=== PATIENT | male | born 1945 | race Two or more races ===

== ENCOUNTER 2023-11-27 03:39 | Observation (INO) | payer OTHER ==
[~2023-11-27] VITALS: Ht 177.8 cm; Wt 108.3 kg
[2023-11-27 05:00] VITALS: BP 116/58; PULSE 105; RESP 20; TEMP 97.9; O2SAT 99
[2023-11-27] MEDS ORDERED: HYDR-4902 PO (05:58)
[2023-11-27 05:59] VITALS: BP 116/58; PULSE 101; RESP 19; TEMP 97.5; O2SAT 95
[2023-11-27] MEDS ORDERED: NITROGLYCERIN 0.4 MG SL TAB SL PRN (06:15)
[2023-11-27] MEDS ORDERED: DEXTROSE (50%) 50ML SYRG IV PRN (06:15)
[2023-11-27] MEDS: InsuLIN REG 1unit/0.01ml Soln (100units/ml) SC SCH (06:40)
[2023-11-27] MEDS: ACCU-CHEK COMFORT CURVE STRIP VI SCH (06:42)
[2023-11-27 06:59] LABS: Basophils # (auto) 0 10 ^3/uL (0-0.2); Basophils % (auto) 0.4 % (0.0-2.0); Eosinophils # (auto) 0.1 10 ^3/uL (0-0.8); Eosinophils % (auto) 1.2 % (0.0-7.0); Hematocrit 34.4 % (41.0-53.0); Hemoglobin 12.3 g/dL (13.5-17.5); Lymphocytes # (auto) 1.9 10 ^3/uL (0.4-5.4); Lymphocytes % (auto) 18.5 % (10.0-50.0); Mean Corpuscular Hemoglobin 30.1 pg (28.0-32.0); Mean Corpuscular Hgb Conc. 35.8 g/dL (32.0-36.0); Mean Corpuscular Volume 84.2 fL (80.0-100.0); Monocytes # (auto) 1.7 10 ^3/uL (0-1.3); Monocytes % (auto) 16.9 % (0.0-12.0); Neutrophils # (auto) 6.4 10 ^3/uL (1.6-8.6); Red Blood Cells 4.09 10^6/uL (4.5-5.90); Red Cell Distribution Width 14.6 % (11.8-14.3); White Blood Cell 10.2 10^3/uL (4.4-10.8)
[2023-11-27 07:09] LABS: Anion Gap 10 (5-15); Carbon Dioxide 25 mmol/L (20-30); Chloride 101 mmol/L (98-107); Potassium 2.6 mmol/L (3.5-5.1); Sodium 136 mmol/L (136-145)
[2023-11-27 07:11] LABS: Calcium 8.9 mg/dL (8.7-10.4)
[2023-11-27 07:15] LABS: BUN/Creatinine Ratio 16.9 (10.0-20.0); Blood Urea Nitrogen 34 mg/dL (9-23); Glucose 103 mg/dL (74-106)
[2023-11-27 08:00] VITALS: PULSE 103; PULSE 92; RESP 16; O2SAT 92
[2023-11-27 08:25] LABS: INR 1.59 (0.9-1.15); Prothrombin Time 16.3 sec (9.3-11.8)
[2023-11-27] MEDS: ONDANSETRON HCL 4 MG/2 ML VIAL IV PRN (08:43)
[2023-11-27] MEDS: POTASSIUM CHL 20 Meq TABLET PO ONE (08:45)
[2023-11-27 09:00] VITALS: BP 136/80; PULSE 74; RESP 16; TEMP 98.3; O2SAT 92
[2023-11-27] MEDS: HYDROcodone-ACET 5/325MG TAB PO PRN (09:03)
[2023-11-27] MEDS: METOPROLOL TARTRATE 25 MG TAB PO SCH (09:03)
[2023-11-27] MEDS ORDERED: APIX5TAB PO (10:02)
[2023-11-27] MEDS ORDERED: MET25T PO (10:02)
[2023-11-27] MEDS ORDERED: ATOR-507 PO (11:56)
[2023-11-27] MEDS ORDERED: ASPI-543 PO (11:56)
[2023-11-27 12:18] LABS: Basophils # (auto) 0 10 ^3/uL (0-0.2); Basophils % (auto) 0.4 % (0.0-2.0); Eosinophils # (auto) 0.2 10 ^3/uL (0-0.8); Eosinophils % (auto) 1.9 % (0.0-7.0); Hematocrit 34.8 % (41.0-53.0); Hemoglobin 12.2 g/dL (13.5-17.5); Lymphocytes # (auto) 1.6 10 ^3/uL (0.4-5.4); Lymphocytes % (auto) 17.9 % (10.0-50.0); Mean Corpuscular Hemoglobin 29.8 pg (28.0-32.0); Mean Corpuscular Hgb Conc. 35.1 g/dL (32.0-36.0); Mean Corpuscular Volume 84.8 fL (80.0-100.0); Monocytes # (auto) 1.5 10 ^3/uL (0-1.3); Monocytes % (auto) 16.4 % (0.0-12.0); Neutrophils # (auto) 5.6 10 ^3/uL (1.6-8.6); Neutrophils % (auto) 63.4 % (37.0-80.0); Red Cell Distribution Width 14.8 % (11.8-14.3); White Blood Cell 8.9 10^3/uL (4.4-10.8)
[2023-11-27 13:00] VITALS: BP 90/59; PULSE 101; RESP 16; TEMP 98.8; O2SAT 96
[2023-11-27 17:17] VITALS: BP 92/52; PULSE 99; RESP 16; TEMP 98.2; O2SAT 91
[2023-11-27] MEDS ORDERED: APIXABAN 5 MG TAB PO SCH (22:00)
== END 2023-11-27 18:00 | disposition home or self-care (01) ==
LOC: WEST WING 05:25 → INTOOBSV 05:25 → TELE-WESTW 06:00
PROVIDERS: ADMIT Hospitalist; ATTEND Hospitalist
DX: I21.4 Non-ST elevation (NSTEMI) myocardial infarction (principal); I48.91 Unspecified atrial fibrillation; I10 Essential (primary) hypertension; E78.5 Hyperlipidemia, unspecified; E11.9 Type 2 diabetes mellitus without complications; Z79.84 Long term (current) use of oral hypoglycemic drugs; Z79.899 Other long term (current) drug therapy; Z98.890 Other specified postprocedural states
CPT/HCPCS: 36415; 80048; 82962; 83735; 84443; 84484; 85025; 85610; 93005; 93306; 96374; 97163; G0378; J2405